=== PATIENT | female | born 1945 | race Caucasian/White ===

== ENCOUNTER 2018-02-22 00:32 | Emergency (ER) | payer OTHER ==
[~2018-02-22] VITALS: Ht 154.9 cm; Wt 79.8 kg
[~2018-02-22 00:32] MED LIST: ANAPROX DS550 M1 PO; ATORVASTATIN CA40 MG PO; BENAZEPRIL HCL40 MG PO; COD LIVER OIL1 EACH PO; DAILY VITAMIN1 EAC8 PO; FLOVENT DISKUS1 DIS2 IH; HYDROCHLOROTH12.5 M3 PO; LO-DOSE ASPIRIN81 M1 PO; LORAZEPAM0.5 MG PO; MEGARED PLANT-300 MG PO; MOBIC7.5 MG PO; NORCO 5/3251 TABLET PO; OMEPRAZOLE20 MG PO; RANITIDINE HCL300 MG PO; TRAZODONE HCL50 MG PO; VITAMIN E400 UNI6 PO; ZOFRAN ODT4 MG PO
[2018-02-22 00:52] LABS: HEMOGLOBIN 12.8 G/DL (11.9-15.5); MCH 32.1 PG (29.0-34.0); MCHC 34.6 G/DL (30.0-36.0); MCV 92.7 FL (83-99); PLATELET COUNT 237 K/uL (156-360); RBC DIS.WIDTH-CV 12.3 % (11.8-14.6); RBC DIS.WIDTH-SD 42.2 % (39-53); RED BLOOD COUNT 3.99 M/uL (3.80-5.20); WHITE BLOOD COUNT 7.1 K/uL (4.1-10.2)
[2018-02-22 01:03] LABS: CHLORIDE 100 mEq/L (99-109); POTASSIUM 3.6 mEq/L (3.7-5.4); SODIUM 137 mEq/L (136-147)
[2018-02-22 01:05] LABS: GLUCOSE 110 mg/dL (70-99)
[2018-02-22 01:09] LABS: CREATININE 0.9 mg/dL (0.6-1.3); GFR ESTIMATE (CALCULATED) > 59 mL/min/
[2018-02-22 01:10] LABS: UREA NITROGEN (BUN) 18 mg/dL (9-23)
[2018-02-22 01:13] LABS: TROP-I INTERPRETATION NEGATIVE; TROPONIN-I < 0.01 ng/mL (0.0-0.30)
[2018-02-22 01:48] LABS: ALBUMIN 4.4 g/dL (3.2-4.8)
[2018-02-22 01:51] LABS: TOTAL PROTEIN 6.6 g/dL (6.4-8.3)
[2018-02-22 01:53] LABS: TOTAL BILIRUBIN 0.4 mg/dL (0.0-1.0)
[2018-02-22 01:54] LABS: ALKALINE PHOSPHATASE 85 IU/L (3-129)
[2018-02-22 01:56] LABS: AST (GOT) 23 IU/L (2-34); DIRECT BILIRUBIN 0.1 mg/dL (0.0-0.3)
[2018-02-22 01:57] LABS: ALT (GPT) 26 IU/L (3-49); LIPASE 67 U/L (1.0-51.0)
[2018-02-22 04:41] LABS: TROP-I INTERPRETATION NEGATIVE; TROPONIN-I < 0.01 ng/mL (0.0-0.30)
[2018-02-22] MEDS ORDERED: PANTOPRAZOLE SO40 MG PO (04:45)
[2018-02-22 05:01] VITALS: BP 179/91
== END 2018-02-22 05:02 | disposition home or self-care (01) ==
LOC: EME 00:32
PROVIDERS: Emergency Medicine
DX: R10.13 Epigastric pain (principal); I48.91 Unspecified atrial fibrillation; Z79.01 Long term (current) use of anticoagulants; E78.5 Hyperlipidemia, unspecified; I10 Essential (primary) hypertension; Z79.82 Long term (current) use of aspirin
CPT/HCPCS: 71046; 80048; 80076; 83690; 84484; 85027; 93005; 99281; 99285

== ENCOUNTER 2018-04-10 10:47 | Emergency (ER) | payer OTHER ==
[~2018-04-10] VITALS: Ht 154.9 cm; Wt 77.6 kg
[~2018-04-10 10:47] MED LIST changes: +PANTOPRAZOLE SO40 MG PO
[2018-04-10 10:50] VITALS: BP 195/94
[2018-04-10] MEDS ORDERED: PREDNISONE10 MG PO (11:21)
[2018-04-10] MEDS ORDERED: KEFLEX500 MG PO (11:21)
== END 2018-04-10 12:12 | disposition home or self-care (01) ==
LOC: EME 10:47
DX: R22.32 Localized swelling, mass and lump, left upper limb (principal); L53.9 Erythematous condition, unspecified; T63.461A Toxic effect of venom of wasps, accidental (unintentional), initial encounter; I10 Essential (primary) hypertension; E78.5 Hyperlipidemia, unspecified; Z79.82 Long term (current) use of aspirin; Z86.79 Personal history of other diseases of the circulatory system; Z88.8 Allergy status to other drugs, medicaments and biological substances
CPT/HCPCS: 99281; 99283; J7512